=== PATIENT | female | born 1945 | race Caucasian/White ===

== ENCOUNTER 2022-01-03 11:20 | Emergency (ER) | payer MEDICARE ==
[~2022-01-03 11:20] MED LIST: Iopamidol-370 76% 500 ML 1 ML ONE
[2022-01-03 12:33] LABS: #Eosinphils 0.1 thou/uL (0.0-0.7); #Lymphocytes 1.3 thou/uL (1.20-3.40); #Monocytes 0.4 thou/uL (0.11-0.59); #Neutrophils 4.7 thou/uL (1.40-6.50); %Basophils 0.6 % (0.0-1.0); %Eosinophils 2.1 % (0.0-10.0); %Lymphocytes 19.6 % (21.0-51.0); %Neutrophils 71.7 % (42.0-75.0); Hemoglobin 13.5 g/dL (12.0-16.0); Mean Corpuscular HGB CONC 32.3 g/dL (32.0-36.0); Mean Corpuscular Hemoglobin 29.2 pg (27.0-31.0); Mean Corpuscular Volume 90.5 fl (78.0-98.0); Mean Platelet Volume 8.2 fL (7.4-10.4); Platelet Count 127 thou/uL (130-400); RBC Distribution Width 12.7 % (11.5-14.5); Red Blood Cell (RBC) Count 4.62 mill/uL (4.20-5.40); White Blood Cell (WBC) Count 6.6 thou/uL (4.8-10.8)
[2022-01-03 13:41] LABS: Albumin 3.6 g/dL (3.4-4.8)
[2022-01-03 13:42] LABS: Chloride 108 mmol/L (98-107); Potassium 4.3 mmol/L (3.5-5.1); Sodium 139 mmol/L (136-145)
[2022-01-03 13:43] LABS: Calcium 9.5 mg/dL (7.8-10.44); Glucose 177 mg/dL (83-110)
[2022-01-03 13:44] LABS: Globulin 2.8 g/dL (2.4-3.5); Protein, Total 6.4 g/dL (5.8-8.1)
[2022-01-03 13:45] LABS: Anion Gap 9 mmol/L (10-20); Bilirubin, Total 0.5 mg/dL (0.2-1.2); Carbon Dioxide 26 mmol/L (23-31)
[2022-01-03 13:46] LABS: Alkaline Phosphatase 50 U/L (40-110)
[2022-01-03 13:47] LABS: BUN (Urea Nitrogen) 13 mg/dL (9.8-20.1); Calc. Creatinine Clearance 0 mL/min (70-130); Estimated GFR 54
[2022-01-03 13:49] LABS: ALT (SGPT) Less than 7 U/L (8-55); AST (SGOT) 14 U/L (5-34)
[2022-01-03] MEDS ORDERED: diphenhydrAMINE 50 MG/ML VIAL ONE (13:55)
[2022-01-03] MEDS ORDERED: methylPREDNISolone Sod Succ 40 MG VIAL ONE (13:55)
[2022-01-03] MEDS ORDERED: Famotidine/PF 20 mg/2ml Vial ONE (13:55)
[2022-01-03] MEDS ORDERED: Enoxaparin Sodium 100 MG/ML SYRINGE ONE (15:40)
[2022-01-03] MEDS ORDERED: Nitroglycerin 2% Ointment 1 INCH/1 GM Packet ONE (15:45)
== END 2022-01-03 16:00 | disposition home or self-care (01) ==
LOC: ERS 11:20
DX: I82.401 Acute embolism and thrombosis of unspecified deep veins of right lower extremity (principal); E11.9 Type 2 diabetes mellitus without complications; E78.2 Mixed hyperlipidemia; I10 Essential (primary) hypertension
CPT/HCPCS: 36415; 71275; 80053; 85025; 85379; 96372; 96374; 96375; J1200; J1650; J2920; Q9967; S0028

== ENCOUNTER 2022-07-08 14:20 | Inpatient (IN) | payer MEDICARE ==
[2022-07-08 14:53] LABS: #Eosinphils 0.1 thou/uL (0.0-0.7); #Monocytes 0.3 thou/uL (0.11-0.59); #Neutrophils 2.5 thou/uL (1.40-6.50); %Basophils 0.5 % (0.0-1.0); %Eosinophils 2.2 % (0.0-10.0); %Lymphocytes 23.3 % (21.0-51.0); %Monocytes 6.8 % (0.0-10.0); %Neutrophils 66.7 % (42.0-75.0); Hemoglobin 6.7 g/dL (12.0-16.0); Mean Corpuscular Hemoglobin 24.8 pg (27.0-31.0); Mean Corpuscular Volume 82.6 fl (78.0-98.0); Platelet Count 151 10x3/uL (130-400); RBC Distribution Width 14.3 % (11.5-14.5); White Blood Cell (WBC) Count 3.7 10x3/uL (4.8-10.8)
[2022-07-08] MEDS ORDERED: tiZANidine HCl 4 MG TAB PO PRN (15:27)
[2022-07-08] MEDS ORDERED: Dextrose 50% Abboject 50 ML SYRINGE SLOW IVP PRN (15:28)
[2022-07-08] MEDS ORDERED: Dextrose 5% in Water 1,000 ML IV PRN (15:28)
[2022-07-08] MEDS ORDERED: Ondansetron PF 4 MG/2 ML Vial IVP PRN (15:31)
[2022-07-08] MEDS ORDERED: Acetaminophen 325 MG TAB PO PRN (15:31)
[2022-07-08] MEDS ORDERED: Pantoprazole 40 MG VIAL ONE (15:32)
[2022-07-08 15:36] LABS: ALT (SGPT) Less than 7 U/L (8-55); AST (SGOT) 12 U/L (5-34); Albumin 3.1 g/dL (3.4-4.8); Alkaline Phosphatase 37 U/L (40-110); Anion Gap 9 mmol/L (10-20); BUN (Urea Nitrogen) 18 mg/dL (9.8-20.1); Bilirubin, Total 0.3 mg/dL (0.2-1.2); Calc. Creatinine Clearance 0 mL/min (70-130); Calcium 8.9 mg/dL (7.8-10.44); Carbon Dioxide 22 mmol/L (23-31); Chloride 112 mmol/L (98-107); Estimated GFR 50; Globulin 2.4 g/dL (2.4-3.5); Glucose 244 mg/dL (83-110); Potassium 4.3 mmol/L (3.5-5.1); Protein, Total 5.5 g/dL (5.8-8.1); Sodium 139 mmol/L (136-145)
[2022-07-08] MEDS ORDERED: Sodium Chloride 0.9% 1,000 ML IV SCH (15:45)
[2022-07-08 18:46] LABS: Troponin I 0.033 ng/mL (< 0.028)
[2022-07-08] MEDS: Atorvastatin Calcium 20 MG TAB PO SCH (20:49)
[2022-07-08] MEDS: Pantoprazole 40 MG VIAL IVP SCH (20:50)
[2022-07-08] MEDS: Lactated Ringer's 1,000 ML IV SCH (21:12)
[2022-07-08 21:32] VITALS: BMI 37.4
[2022-07-08 21:51] LABS: Hemoglobin 8.6 g/dL (12.0-16.0)
[2022-07-08 22:20] LABS: Troponin I 0.027 ng/mL (< 0.028)
[2022-07-09 04:49] LABS: #Eosinphils 0.2 thou/uL (0.0-0.7); #Monocytes 0.5 thou/uL (0.11-0.59); #Neutrophils 3.1 thou/uL (1.40-6.50); %Basophils 0.4 % (0.0-1.0); %Eosinophils 3.1 % (0.0-10.0); %Lymphocytes 26.3 % (21.0-51.0); %Monocytes 8.8 % (0.0-10.0); Hemoglobin 8.1 g/dL (12.0-16.0); Mean Corpuscular HGB CONC 30.3 g/dL (32.0-36.0); Mean Corpuscular Hemoglobin 25.6 pg (27.0-31.0); Mean Corpuscular Volume 84.2 fl (78.0-98.0); Mean Platelet Volume 10.3 fL (7.4-10.4); Platelet Count 159 10x3/uL (130-400); RBC Distribution Width 14.4 % (11.5-14.5); Red Blood Cell (RBC) Count 3.17 mill/uL (4.20-5.40); White Blood Cell (WBC) Count 5.1 10x3/uL (4.8-10.8)
[2022-07-09 05:02] LABS: INR-International Normal Ratio 1.6; Prothrombin Time 19.3 sec (12.0-14.7)
[2022-07-09 05:18] LABS: ALT (SGPT) Less than 7 U/L (8-55); AST (SGOT) 10 U/L (5-34); Albumin 3.1 g/dL (3.4-4.8); Alkaline Phosphatase 35 U/L (40-110); Anion Gap 11 mmol/L (10-20); BUN (Urea Nitrogen) 15 mg/dL (9.8-20.1); Bilirubin, Total 0.5 mg/dL (0.2-1.2); Calc. Creatinine Clearance 72 mL/min (70-130); Calcium 8.8 mg/dL (7.8-10.44); Carbon Dioxide 22 mmol/L (23-31); Chloride 112 mmol/L (98-107); Estimated GFR 57; Globulin 2.4 g/dL (2.4-3.5); Glucose 75 mg/dL (83-110); Potassium 3.7 mmol/L (3.5-5.1); Protein, Total 5.5 g/dL (5.8-8.1); Sodium 141 mmol/L (136-145)
[2022-07-09] MEDS: Venlafaxine HCl XR 150 MG CAP PO SCH (09:37)
[2022-07-09] MEDS: Pantoprazole 40 MG VIAL IVP SCH ×2 (09:38→21:27)
[2022-07-09] MEDS: Lactated Ringer's 1,000 ML IV SCH (09:47)
[2022-07-09 15:08] LABS: Hemoglobin 8.2 g/dL (12.0-16.0)
[2022-07-09] MEDS: Atorvastatin Calcium 20 MG TAB PO SCH (21:27)
[2022-07-10 04:36] LABS: #Eosinphils 0.2 thou/uL (0.0-0.7); #Monocytes 0.5 thou/uL (0.11-0.59); %Basophils 0.6 % (0.0-1.0); %Eosinophils 3.2 % (0.0-10.0); %Lymphocytes 25.7 % (21.0-51.0); %Monocytes 9.6 % (0.0-10.0); %Neutrophils 60.5 % (42.0-75.0); Hemoglobin 8.4 g/dL (12.0-16.0); Mean Corpuscular HGB CONC 30.1 g/dL (32.0-36.0); Mean Corpuscular Hemoglobin 25.6 pg (27.0-31.0); Mean Corpuscular Volume 85.1 fl (78.0-98.0); Platelet Count 162 10x3/uL (130-400); RBC Distribution Width 14.8 % (11.5-14.5); Red Blood Cell (RBC) Count 3.28 mill/uL (4.20-5.40)
[2022-07-10 04:59] LABS: Anion Gap 12 mmol/L (10-20); BUN (Urea Nitrogen) 12 mg/dL (9.8-20.1); Calc. Creatinine Clearance 74 mL/min (70-130); Carbon Dioxide 19 mmol/L (23-31); Chloride 114 mmol/L (98-107); Estimated GFR 59; Glucose 104 mg/dL (83-110); Potassium 3.8 mmol/L (3.5-5.1); Sodium 141 mmol/L (136-145)
[2022-07-10] MEDS: Pantoprazole 40 MG VIAL IVP SCH ×2 (08:23→21:45)
[2022-07-10] MEDS: Venlafaxine HCl XR 150 MG CAP PO SCH (08:23)
[2022-07-10] MEDS ORDERED: Lidocaine 1% PF 5 ML VIAL ONE (09:50)
[2022-07-10] MEDS ORDERED: Ondansetron HCl/PF 4 MG/2 ML Vial IVP PRN (10:15)
[2022-07-10] MEDS: Lactated Ringer's 1,000 ML IV SCH (11:34)
[2022-07-10] MEDS ORDERED: Triple Antibiotic Oint 1 GM Packet TOP PRN (12:00)
[2022-07-10] MEDS ORDERED: GoLYTELY 4,000 ml Bottle PO SCH (16:00)
[2022-07-10] MEDS: Atorvastatin Calcium 20 MG TAB PO SCH (21:45)
[2022-07-11] MEDS: Lactated Ringer's 1,000 ML IV SCH (01:16)
[2022-07-11 04:35] LABS: #Eosinphils 0.2 thou/uL (0.0-0.7); #Monocytes 0.5 thou/uL (0.11-0.59); #Neutrophils 3.2 thou/uL (1.40-6.50); %Basophils 0.6 % (0.0-1.0); %Eosinophils 4.6 % (0.0-10.0); %Monocytes 9.1 % (0.0-10.0); %Neutrophils 63.5 % (42.0-75.0); Mean Corpuscular HGB CONC 29.9 g/dL (32.0-36.0); Mean Corpuscular Hemoglobin 24.9 pg (27.0-31.0); Mean Corpuscular Volume 83.5 fl (78.0-98.0); Mean Platelet Volume 10.5 fL (7.4-10.4); Platelet Count 167 10x3/uL (130-400); RBC Distribution Width 15.2 % (11.5-14.5); Red Blood Cell (RBC) Count 3.21 mill/uL (4.20-5.40); White Blood Cell (WBC) Count 5.1 10x3/uL (4.8-10.8)
[2022-07-11 05:09] LABS: Anion Gap 11 mmol/L (10-20); BUN (Urea Nitrogen) 8 mg/dL (9.8-20.1); Calc. Creatinine Clearance 78 mL/min (70-130); Calcium 8.8 mg/dL (7.8-10.44); Carbon Dioxide 23 mmol/L (23-31); Chloride 110 mmol/L (98-107); Estimated GFR 63; Glucose 126 mg/dL (83-110); Potassium 3.5 mmol/L (3.5-5.1); Sodium 140 mmol/L (136-145)
[2022-07-11 06:39] LABS: Elliptocytes SLIGHT = 2-5 cells HPF (0-1); Hypochromia SLIGHT = 6-15 cells HPF (0-5); Platelet Morphology Comment Platelets Normal; Polychromasia SLIGHT = 2-3 cells HPF (0-2)
[2022-07-11] MEDS ORDERED: Potassium Chloride 20 MEQ TAB PO SCH (08:00)
[2022-07-11] MEDS ORDERED: Vasopressin 20 UNITS/ML VIAL ONE (09:39)
[2022-07-11] MEDS ORDERED: Lidocaine 1% PF 5 ML VIAL ONE (10:01)
[2022-07-11] MEDS: Pantoprazole 40 MG VIAL IVP SCH ×3 (10:34→21:55)
[2022-07-11] MEDS: Venlafaxine HCl XR 150 MG CAP PO SCH (10:35)
[2022-07-11] MEDS: Atorvastatin Calcium 20 MG TAB PO SCH (21:32)
[2022-07-11] MEDS ORDERED: Pantoprazole 40 MG GRANULES PACKET PO SCH (22:00)
[2022-07-12 05:02] LABS: #Eosinphils 0.2 thou/uL (0.0-0.7); #Monocytes 0.6 thou/uL (0.11-0.59); #Neutrophils 3.3 thou/uL (1.40-6.50); %Basophils 0.6 % (0.0-1.0); %Eosinophils 3.9 % (0.0-10.0); %Lymphocytes 23.5 % (21.0-51.0); %Monocytes 10.6 % (0.0-10.0); Hemoglobin 7.9 g/dL (12.0-16.0); Mean Corpuscular HGB CONC 28.9 g/dL (32.0-36.0); Mean Corpuscular Hemoglobin 24.7 pg (27.0-31.0); Mean Corpuscular Volume 85.3 fl (78.0-98.0); Mean Platelet Volume 10.7 fL (7.4-10.4); Platelet Count 149 10x3/uL (130-400); RBC Distribution Width 15.4 % (11.5-14.5); White Blood Cell (WBC) Count 5.4 10x3/uL (4.8-10.8)
[2022-07-12 05:24] LABS: Anion Gap 12 mmol/L (10-20); BUN (Urea Nitrogen) 9 mg/dL (9.8-20.1); Calc. Creatinine Clearance 69 mL/min (70-130); Calcium 8.9 mg/dL (7.8-10.44); Carbon Dioxide 21 mmol/L (23-31); Chloride 111 mmol/L (98-107); Estimated GFR 55; Glucose 236 mg/dL (83-110); Potassium 3.5 mmol/L (3.5-5.1); Sodium 140 mmol/L (136-145)
[2022-07-12 05:59] LABS: Anisocytosis SLIGHT = 6-15 cells HPF (0-5); Hypochromia SLIGHT = 6-15 cells HPF (0-5); Ovalocytes SLIGHT = 2-5 cells HPF (0-1); Platelet Morphology Comment Platelets Normal; Polychromasia SLIGHT = 2-3 cells HPF (0-2); Target Cells SLIGHT = 2-5 cells HPF (0-1)
[2022-07-12] MEDS: HumaLOG 300 UNITS/3 ML VIAL SC PRN ×2 (07:19→17:58)
[2022-07-12] MEDS: Venlafaxine HCl XR 150 MG CAP PO SCH (08:54)
[2022-07-12] MEDS: Pantoprazole 40 MG GRANULES PACKET PO SCH ×2 (08:54→20:40)
[2022-07-12] MEDS ORDERED: Amlodipine 5 MG TAB PO SCH (09:15)
[2022-07-12] MEDS ORDERED: Potassium Chloride 20 MEQ TAB PO SCH (09:30)
[2022-07-12] MEDS: Atorvastatin Calcium 20 MG TAB PO SCH (20:39)
[2022-07-13] MEDS: HumaLOG 300 UNITS/3 ML VIAL SC PRN ×5 (01:13→21:39)
[2022-07-13] MEDS: Venlafaxine HCl XR 150 MG CAP PO SCH (09:15)
[2022-07-13] MEDS: Amlodipine 5 MG TAB PO SCH (09:15)
[2022-07-13] MEDS: Pantoprazole 40 MG GRANULES PACKET PO SCH ×2 (09:15→20:11)
[2022-07-13] MEDS ORDERED: Insulin Glargine 30 UNITS/0.3 ML VIAL SC SCH (13:00)
[2022-07-13] MEDS: Atorvastatin Calcium 20 MG TAB PO SCH (20:11)
[2022-07-14 05:02] LABS: Hemoglobin 8.1 g/dL (12.0-16.0); Mean Corpuscular HGB CONC 28.9 g/dL (32.0-36.0); Mean Corpuscular Hemoglobin 24.4 pg (27.0-31.0); Mean Corpuscular Volume 84.3 fl (78.0-98.0); Mean Platelet Volume 10.7 fL (7.4-10.4); Platelet Count 166 10x3/uL (130-400); RBC Distribution Width 15.8 % (11.5-14.5); Red Blood Cell (RBC) Count 3.32 mill/uL (4.20-5.40); White Blood Cell (WBC) Count 5.8 10x3/uL (4.8-10.8)
[2022-07-14 05:08] LABS: Delete Auto Diff?? YES; Manual Diff?? YES
[2022-07-14 05:35] LABS: Anion Gap 11 mmol/L (10-20); BUN (Urea Nitrogen) 10 mg/dL (9.8-20.1); Calc. Creatinine Clearance 67 mL/min (70-130); Calcium 9.2 mg/dL (7.8-10.44); Carbon Dioxide 21 mmol/L (23-31); Chloride 107 mmol/L (98-107); Estimated GFR 52; Glucose 247 mg/dL (83-110); Sodium 135 mmol/L (136-145)
[2022-07-14 05:44] LABS: Band 11 % (5-11); CellaVision Operator ID LAB.CLH1; Eosinophils 3 % (0-10); Hypochromia SLIGHT = 6-15 cells HPF (0-5); Lymphocytes 12 % (21-51); Monocytes 3 % (0-10); Neutrophil 69 % (42-75); Platelet Morphology Comment Platelets Normal; Polychromasia MODERATE = 3-4 cells HPF (0-2); Total Cell Count 100
[2022-07-14] MEDS: HumaLOG 300 UNITS/3 ML VIAL SC PRN ×4 (05:45→20:18)
[2022-07-14] MEDS: Amlodipine 5 MG TAB PO SCH (08:47)
[2022-07-14] MEDS: Venlafaxine HCl XR 150 MG CAP PO SCH (08:50)
[2022-07-14] MEDS ORDERED: Insulin Glargine 30 UNITS/0.3 ML VIAL SC SCH (09:00)
[2022-07-14] MEDS ORDERED: Non-Formulary Item 1 EACH (Insulin Aspart [Novolog Flexpen] 100 UNIT/ML Insuln.Pen) SQ SCH (09:00)
[2022-07-14] MEDS ORDERED: Rivaroxaban 10 MG TAB PO SCH (09:00)
[2022-07-14] MEDS: Pantoprazole 40 MG GRANULES PACKET PO SCH (09:39)
[2022-07-14] MEDS: Rivaroxaban 10 MG TAB PO SCH (16:08)
[2022-07-14] MEDS: Insulin Glargine 30 UNITS/0.3 ML VIAL SC SCH (20:14)
[2022-07-14] MEDS: Atorvastatin Calcium 20 MG TAB PO SCH (20:19)
[2022-07-14] MEDS ORDERED: LIRAGLUTIDE 0.6 MG/0.1 ML SC SCH (21:00)
[2022-07-15 05:09] LABS: Hemoglobin 7.7 g/dL (12.0-16.0)
[2022-07-15 05:30] LABS: Anion Gap 11 mmol/L (10-20); BUN (Urea Nitrogen) 11 mg/dL (9.8-20.1); Calc. Creatinine Clearance 74 mL/min (70-130); Calcium 9.1 mg/dL (7.8-10.44); Carbon Dioxide 23 mmol/L (23-31); Chloride 108 mmol/L (98-107); Estimated GFR 59; Glucose 169 mg/dL (83-110); Potassium 3.8 mmol/L (3.5-5.1); Sodium 138 mmol/L (136-145)
[2022-07-15] MEDS: Amlodipine 5 MG TAB PO SCH (08:52)
[2022-07-15] MEDS: Venlafaxine HCl XR 150 MG CAP PO SCH (08:52)
[2022-07-15] MEDS: HumaLOG 300 UNITS/3 ML VIAL SC PRN ×2 (11:17→18:11)
[2022-07-15] MEDS: Rivaroxaban 10 MG TAB PO SCH (18:11)
[2022-07-15] MEDS: Insulin Glargine 30 UNITS/0.3 ML VIAL SC SCH (20:52)
[2022-07-15] MEDS: Atorvastatin Calcium 20 MG TAB PO SCH (20:52)
[2022-07-16 04:44] LABS: Hemoglobin 7.9 g/dL (12.0-16.0)
[2022-07-16] MEDS: Amlodipine 5 MG TAB PO SCH (09:37)
[2022-07-16] MEDS: Venlafaxine HCl XR 150 MG CAP PO SCH (09:38)
[2022-07-16] MEDS: Rivaroxaban 10 MG TAB PO SCH (16:26)
[2022-07-16] MEDS: HumaLOG 300 UNITS/3 ML VIAL SC PRN (16:33)
[2022-07-16] MEDS: Insulin Glargine 30 UNITS/0.3 ML VIAL SC SCH (20:43)
[2022-07-16] MEDS: Atorvastatin Calcium 20 MG TAB PO SCH (20:44)
[2022-07-17 04:16] LABS: Hemoglobin 7.7 g/dL (12.0-16.0)
[2022-07-17] MEDS: Amlodipine 5 MG TAB PO SCH (10:30)
[2022-07-17] MEDS: Venlafaxine HCl XR 150 MG CAP PO SCH (10:30)
[2022-07-17] MEDS: HumaLOG 300 UNITS/3 ML VIAL SC PRN (10:34)
[2022-07-17 11:53] VITALS: BP 128/58; TEMP 98.1
== END 2022-07-17 15:15 | disposition home health service (06) | DRG 812 ==
LOC: ERS 14:20 → SUATTDRO 14:20 → 2NO 17:03
PROVIDERS: ADMIT Internal Medicine; ATTEND Internal Medicine
PROC: 30233N1 Transfusion of Nonautologous Red Blood Cells into Peripheral Vein, Percutaneous Approach (ICD-10-PCS; 2022-07-08)
PROC: 0DJ08ZZ Inspection of Upper Intestinal Tract, Via Natural or Artificial Opening Endoscopic (ICD-10-PCS; principal; 2022-07-10)
PROC: 0DBM8ZZ Excision of Descending Colon, Via Natural or Artificial Opening Endoscopic (ICD-10-PCS; 2022-07-11)
PROC: 3E033XZ Introduction of Vasopressor into Peripheral Vein, Percutaneous Approach (ICD-10-PCS; 2022-07-11)
DX: D62 Acute posthemorrhagic anemia (principal); I10 Essential (primary) hypertension; E78.5 Hyperlipidemia, unspecified; E11.9 Type 2 diabetes mellitus without complications; G89.29 Other chronic pain; G20 Parkinson's disease; K57.30 Diverticulosis of large intestine without perforation or abscess without bleeding; D12.4 Benign neoplasm of descending colon; T70.29XA Other effects of high altitude, initial encounter; Z79.01 Long term (current) use of anticoagulants; Z86.718 Personal history of other venous thrombosis and embolism; Z88.5 Allergy status to narcotic agent; Z90.710 Acquired absence of both cervix and uterus; Z88.8 Allergy status to other drugs, medicaments and biological substances; Z98.890 Other specified postprocedural states; Z79.82 Long term (current) use of aspirin; Z79.4 Long term (current) use of insulin; Z91.048 Other nonmedicinal substance allergy status; Z79.84 Long term (current) use of oral hypoglycemic drugs; Z79.899 Other long term (current) drug therapy
CPT/HCPCS: 36415; 36416; 36430; 71045; 80048; 80053; 82274; 84484; 85014; 85018; 85025; 85379; 85610; 86850; 86900; 86901; 88305; 93005; 96374; C9113; J1815; J7120; P9016

== ENCOUNTER 2024-10-31 20:37 | Inpatient (IN) | payer MEDICARE ==
[~2024-10-31 20:37] MED LIST changes: -Iopamidol-370 76% 500 ML 1 ML ONE; +Iopamidol-370 76% 500 ML MDV (1 ML CHARGE) ONE
[2024-10-31 21:26] LABS: Bacteria/HPF None Seen HPF (None Seen); CAUTI Indications for Culture Acute Hematuria; Glucose, Urine (Dipstick) Greater than 1000 mg/dL (Negative); Leukocyte 500 Leu/uL (Negative); Protein, Urine (Dipstick) 50 mg/dL (Neg-Trace); Specific Gravity, Urine 1.027 (1.002-1.036); WBC/HPF Greater than 50 HPF (0-3)
[2024-10-31 21:28] LABS: #Basophils 0.03 10x3/uL (0.0-0.2); #Eosinophils Less than 0.03 10x3/uL (0.0-0.7); #Monocytes 1.13 10x3/uL (0.11-0.59); #Neutrophils 16.22 10x3/uL (1.40-6.50); %Basophils 0.2 % (0.0-1.0); %Eosinophils 0.0 % (0.0-10.0); %Lymphocytes 4.3 % (21.0-51.0); %Monocytes 6.1 % (0.0-10.0); %Neutrophils 88.2 % (42.0-75.0); Hematocrit 41.8 % (36.0-47.0); Hemoglobin 12.4 g/dL (12.0-16.0); Mean Corpuscular Hemoglobin 22.0 pg (27.0-31.0); Mean Corpuscular Volume 74.2 fL (78.0-98.0); Platelet Count 186 10x3/uL (130-400); Red Blood Cell (RBC) Count 5.63 mill/uL (4.20-5.40); White Blood Cell (WBC) Count 18.41 10x3/uL (4.8-10.8)
[2024-10-31 21:28] LABS: Urine Culture Reflex Yes Yes
[2024-10-31 21:31] LABS: Cocaine Metabolite Screen Negative (Negative); THC/Cannabinoid Screen Negative (Negative); Tricyclic Screen Negative (Negative)
[2024-10-31 21:39] LABS: INR-International Normal Ratio 1.3; Prothrombin Time 16.7 sec (12.0-14.7)
[2024-10-31 21:40] LABS: PTT 32.1 sec (22.9-36.1)
[2024-10-31 21:50] LABS: Lipase 7 U/L (8-78)
[2024-10-31 21:53] LABS: Acetaminophen Less than 10 mcg/mL (Less than 10); Salicylate Less than 8.0 mg/dL (Less than 8.0)
[2024-10-31] MEDS ORDERED: cefTRIAXone (ROCEPHIN) 1 GM VIAL ONE (21:55)
[2024-10-31 22:01] LABS: ALT (SGPT) 11 U/L (Less than 34); AST (SGOT) 49 U/L (11-34); Albumin 3.2 g/dL (3.1-4.5); Alkaline Phosphatase 93 U/L (40-110); Anion Gap 23 mmol/L (10-20); BUN (Urea Nitrogen) 36 mg/dL (9.8-20.1); Bilirubin, Total 1.0 mg/dL (0.3-1.2); CK (CPK) 1475 U/L (29-168); Calc. Creatinine Clearance 0 mL/min (70-130); Calcium 9.6 mg/dL (7.8-10.44); Carbon Dioxide 17 mmol/L (23-31); Chloride 110 mmol/L (98-107); Globulin 4.0 g/dL (2.4-3.5); Glucose 595 mg/dL (83-110); Potassium 4.1 mmol/L (3.5-5.1); Sodium 146 mmol/L (136-145)
[2024-10-31 22:02] LABS: Anisocytosis SLIGHT = 6-15 cells HPF (0-5); Microcytosis SLIGHT = 6-15 cells HPF (0-5); Platelet Adequacy Comment Platelets Normal; Polychromasia SLIGHT = 2-3 cells HPF (0-2)
[2024-10-31 22:28] LABS: Base Excess -11.1 mEq/L (-2.0 to +3.0); Calcium, Ionized (venous) 1.15 mmol/L (1.16-1.32); Chloride (VBG) 107 mmol/L (98-106); Hematocrit-VBG 37 % (36.0-47.0); Hemoglobin (Hb) 12.7 g/dL (11.7-16.1); Potassium (VBG) 4.18 mmol/L (3.70-5.30); Sodium 142 mmol/L (133-146)
[2024-10-31 22:29] LABS: Actual Bicarbonate (HCO3v) 13.5 mEq/L (22-28)
[2024-10-31] MEDS ORDERED: Boostrix 0.5 ML (Tdap) VIAL (>/=7 yrs of age) ONE (22:44)
[2024-10-31] MEDS ORDERED: Electrolyte Replacement Protocol 1 EACH FS SCH (23:45)
[2024-10-31] MEDS ORDERED: INSULIN REGULAR IN 0.9 % NACL 100 ML ONE (23:51)
[2024-10-31] MEDS ORDERED: Calcium Carbonate 500 MG ChewTAB PO PRN (23:57)
[2024-10-31] MEDS ORDERED: Ondansetron PF 4 MG/2 ML Vial IVP PRN (23:57)
[2024-10-31] MEDS ORDERED: Senokot S 8.6-50 MG TAB PO PRN (23:57)
[2024-11-01] MEDS ORDERED: Dextrose 50% Abboject 50 ML SYRINGE SLOW IVP PRN ×2 (00:05→10:00)
[2024-11-01] MEDS ORDERED: D5 1/2 NS w/20 mEq KCL 1,000 ML IV PRN (00:05)
[2024-11-01] MEDS ORDERED: NS 0.9% w/ 20 MEQ KCL 1,000 ML IV PRN (00:05)
[2024-11-01] MEDS ORDERED: INSULIN REGULAR IN 0.9 % NACL 100 ML IVPB SCH (00:15)
[2024-11-01] MEDS ORDERED: NS 0.9% w/ 20 MEQ KCL 1,000 ML ONE (00:25)
[2024-11-01 00:53] LABS: Magnesium 1.9 mg/dL (1.6-2.6)
[2024-11-01 01:50] LABS: ALT (SGPT) 11 U/L (Less than 34); AST (SGOT) 47 U/L (11-34); Albumin 2.8 g/dL (3.1-4.5); Alkaline Phosphatase 83 U/L (40-110); Anion Gap 17 mmol/L (10-20); BUN (Urea Nitrogen) 36 mg/dL (9.8-20.1); Bilirubin, Total 0.6 mg/dL (0.3-1.2); Calc. Creatinine Clearance 0 mL/min (70-130); Calcium 8.9 mg/dL (7.8-10.44); Carbon Dioxide 19 mmol/L (23-31); Chloride 115 mmol/L (98-107); Globulin 3.7 g/dL (2.4-3.5); Glucose 448 mg/dL (83-110); Potassium 3.9 mmol/L (3.5-5.1); Sodium 147 mmol/L (136-145)
[2024-11-01 01:58] VITALS: BMI 27.2
[2024-11-01] MEDS: NS 0.9% w/ 20 MEQ KCL 1,000 ML IV PRN (02:53)
[2024-11-01] MEDS: Vancomycin 1 GM in Premix 1 BAG IVPB SCH (02:54)
[2024-11-01 04:19] LABS: #Basophils 0.04 10x3/uL (0.0-0.2); #Eosinophils Less than 0.03 10x3/uL (0.0-0.7); #Monocytes 1.76 10x3/uL (0.11-0.59); #Neutrophils 11.92 10x3/uL (1.40-6.50); %Basophils 0.3 % (0.0-1.0); %Eosinophils 0.0 % (0.0-10.0); %Lymphocytes 9.1 % (21.0-51.0); %Monocytes 11.6 % (0.0-10.0); %Neutrophils 78.3 % (42.0-75.0); Hematocrit 38.5 % (36.0-47.0); Hemoglobin 11.1 g/dL (12.0-16.0); Mean Corpuscular Hemoglobin 22.1 pg (27.0-31.0); Mean Corpuscular Volume 76.5 fL (78.0-98.0); Platelet Count 162 10x3/uL (130-400); Red Blood Cell (RBC) Count 5.03 mill/uL (4.20-5.40); White Blood Cell (WBC) Count 15.21 10x3/uL (4.8-10.8)
[2024-11-01 07:02] LABS: Carbon Dioxide 17 mmol/L (23-31); Chloride 119 mmol/L (98-107); Potassium 5.4 mmol/L (3.5-5.1); Sodium 149 mmol/L (136-145)
[2024-11-01 07:03] LABS: Anion Gap 18 mmol/L (10-20); BUN (Urea Nitrogen) 34 mg/dL (9.8-20.1); CK (CPK) 1736 U/L (29-168); Calc. Creatinine Clearance 48 mL/min (70-130); Calcium 9.1 mg/dL (7.6-10.4); Glucose 226 mg/dL (83-110)
[2024-11-01 07:18] LABS: Magnesium 2.1 mg/dL (1.6-2.6)
[2024-11-01] MEDS: Famotidine/PF 20 mg/2ml Vial SLOW IVP SCH (09:38)
[2024-11-01] MEDS: Heparin 5,000 UNITS/ML VIAL SC SCH (09:40)
[2024-11-01] MEDS ORDERED: Glucagon 1 MG/ML KIT IM PRN (10:00)
[2024-11-01 10:01] LABS: Anion Gap 19 mmol/L (10-20); BUN (Urea Nitrogen) 33 mg/dL (9.8-20.1); Calc. Creatinine Clearance 54 mL/min (70-130); Calcium 9.3 mg/dL (7.8-10.44); Carbon Dioxide 18 mmol/L (23-31); Chloride 121 mmol/L (98-107); Glucose 140 mg/dL (83-110); Potassium 4.4 mmol/L (3.5-5.1); Sodium 154 mmol/L (136-145)
[2024-11-01 10:14] LABS: Hb (HGBA1c) 3201.8096 umol/L
[2024-11-01] MEDS: Magnesium 2 GM/50 ML(in water) 2 GM in Premix 1 BAG IVPB SCH (12:42)
[2024-11-01] MEDS: Vancomycin 1.25 GM / NS 250 ML VIAL-2-BAG IVPB SCH (13:46)
[2024-11-02] MEDS ORDERED: Vancomycin 1 GM in Premix 1 BAG IVPB SCH (06:00)
[2024-11-02 06:09] LABS: Vancomycin, Random 16.1 ug/mL (See Comment)
[2024-11-02 06:12] LABS: ALT (SGPT) 10 U/L (Less than 34); AST (SGOT) 50 U/L (11-34); Albumin 2.6 g/dL (3.1-4.5); Alkaline Phosphatase 70 U/L (40-110); Anion Gap 14 mmol/L (10-20); BUN (Urea Nitrogen) 20 mg/dL (9.8-20.1); Bilirubin, Total 0.7 mg/dL (0.3-1.2); CK (CPK) 1000 U/L (29-168); Calc. Creatinine Clearance 69 mL/min (70-130); Calcium 8.6 mg/dL (7.8-10.44); Carbon Dioxide 17 mmol/L (23-31); Chloride 121 mmol/L (98-107); Globulin 3.2 g/dL (2.4-3.5); Glucose 240 mg/dL (83-110); Magnesium 2.1 mg/dL (1.6-2.6); Potassium 3.7 mmol/L (3.5-5.1); Sodium 148 mmol/L (136-145)
[2024-11-02 06:51] LABS: #Basophils 0.03 10x3/uL (0.0-0.2); #Eosinophils 0.07 10x3/uL (0.0-0.7); #Monocytes 0.50 10x3/uL (0.11-0.59); #Neutrophils 4.99 10x3/uL (1.40-6.50); %Basophils 0.5 % (0.0-1.0); %Eosinophils 1.1 % (0.0-10.0); %Lymphocytes 15.4 % (21.0-51.0); %Monocytes 7.5 % (0.0-10.0); %Neutrophils 75.2 % (42.0-75.0); Hematocrit 36.2 % (36.0-47.0); Hemoglobin 10.2 g/dL (12.0-16.0); Mean Corpuscular Hemoglobin 22.0 pg (27.0-31.0); Mean Corpuscular Volume 78.0 fL (78.0-98.0); Platelet Count 132 10x3/uL (130-400); Red Blood Cell (RBC) Count 4.64 mill/uL (4.20-5.40); White Blood Cell (WBC) Count 6.63 10x3/uL (4.8-10.8)
[2024-11-02] MEDS: Mupirocin 1 GM TUBE TP SCH (07:42)
[2024-11-02] MEDS: Insulin Glargine 30 UNITS/0.3 ML VIAL SC SCH (12:03)
[2024-11-03 06:19] LABS: #Basophils Less than 0.03 10x3/uL (0.0-0.2); #Eosinophils 0.14 10x3/uL (0.0-0.7); #Monocytes 0.34 10x3/uL (0.11-0.59); #Neutrophils 3.21 10x3/uL (1.40-6.50); %Basophils 0.4 % (0.0-1.0); %Eosinophils 2.9 % (0.0-10.0); %Lymphocytes 22.7 % (21.0-51.0); %Monocytes 7.1 % (0.0-10.0); %Neutrophils 66.7 % (42.0-75.0); Hematocrit 30.9 % (36.0-47.0); Hemoglobin 9.0 g/dL (12.0-16.0); Mean Corpuscular Hemoglobin 21.8 pg (27.0-31.0); Mean Corpuscular Volume 75.0 fL (78.0-98.0); Platelet Count 114 10x3/uL (130-400); Red Blood Cell (RBC) Count 4.12 mill/uL (4.20-5.40); White Blood Cell (WBC) Count 4.81 10x3/uL (4.8-10.8)
[2024-11-03 06:41] LABS: ALT (SGPT) 10 U/L (Less than 34); AST (SGOT) 31 U/L (11-34); Albumin 2.1 g/dL (3.1-4.5); Alkaline Phosphatase 65 U/L (40-110); Anion Gap 8 mmol/L (10-20); BUN (Urea Nitrogen) 13 mg/dL (9.8-20.1); Bilirubin, Total 0.7 mg/dL (0.3-1.2); Calc. Creatinine Clearance 82 mL/min (70-130); Calcium 8.1 mg/dL (7.8-10.44); Carbon Dioxide 19 mmol/L (23-31); Chloride 115 mmol/L (98-107); Globulin 3.0 g/dL (2.4-3.5); Glucose 189 mg/dL (83-110); Magnesium 1.7 mg/dL (1.6-2.6); Potassium 3.4 mmol/L (3.5-5.1); Sodium 139 mmol/L (136-145)
[2024-11-03] MEDS: Magnesium 2 GM/50 ML(in water) 2 GM in Premix 1 BAG IVPB SCH (09:12)
[2024-11-03] MEDS: Potassium Bicarbonate/Cit Ac 20 MEQ TAB PO SCH (09:12)
[2024-11-03] MEDS: Insulin Glargine 30 UNITS/0.3 ML VIAL SC SCH (09:13)
[2024-11-03 13:48] VITALS: BMI 29.0
[2024-11-03] MEDS: cefTRIAXone\\ROCEPHIN 2 GM in Sodium Chloride 0.9% 100 ML IVPB SCH (21:00)
[2024-11-03] MEDS: Famotidine/PF 20 mg/2ml Vial SLOW IVP SCH (21:01)
[2024-11-04 06:53] LABS: #Basophils Less than 0.03 10x3/uL (0.0-0.2); #Eosinophils 0.17 10x3/uL (0.0-0.7); #Monocytes 0.40 10x3/uL (0.11-0.59); #Neutrophils 2.69 10x3/uL (1.40-6.50); %Basophils 0.2 % (0.0-1.0); %Eosinophils 3.9 % (0.0-10.0); %Lymphocytes 23.7 % (21.0-51.0); %Monocytes 9.3 % (0.0-10.0); %Neutrophils 62.4 % (42.0-75.0); Hematocrit 29.8 % (36.0-47.0); Hemoglobin 8.7 g/dL (12.0-16.0); Mean Corpuscular Hemoglobin 22.3 pg (27.0-31.0); Mean Corpuscular Volume 76.2 fL (78.0-98.0); Platelet Count 102 10x3/uL (130-400); Red Blood Cell (RBC) Count 3.91 mill/uL (4.20-5.40); White Blood Cell (WBC) Count 4.31 10x3/uL (4.8-10.8)
[2024-11-04 07:42] LABS: Anisocytosis SLIGHT = 6-15 cells HPF (0-5); Burr Cells SLIGHT = 2-5 cells HPF (0-1); Microcytosis SLIGHT = 6-15 cells HPF (0-5); Platelet Adequacy Comment Platelets Decreased; Polychromasia SLIGHT = 2-3 cells HPF (0-2); Schistocytes SLIGHT = 2-5 cells HPF (0-1)
[2024-11-05 05:41] LABS: #Basophils Less than 0.03 10x3/uL (0.0-0.2); #Eosinophils 0.21 10x3/uL (0.0-0.7); #Monocytes 0.45 10x3/uL (0.11-0.59); #Neutrophils 2.81 10x3/uL (1.40-6.50); %Basophils 0.4 % (0.0-1.0); %Eosinophils 4.6 % (0.0-10.0); %Lymphocytes 23.6 % (21.0-51.0); %Monocytes 9.8 % (0.0-10.0); %Neutrophils 60.9 % (42.0-75.0); Hematocrit 29.6 % (36.0-47.0); Hemoglobin 8.6 g/dL (12.0-16.0); Mean Corpuscular Hemoglobin 22.1 pg (27.0-31.0); Mean Corpuscular Volume 76.1 fL (78.0-98.0); Platelet Count 108 10x3/uL (130-400); Red Blood Cell (RBC) Count 3.89 mill/uL (4.20-5.40); White Blood Cell (WBC) Count 4.61 10x3/uL (4.8-10.8)
[2024-11-05 06:21] LABS: Anion Gap 11 mmol/L (10-20); BUN (Urea Nitrogen) 9 mg/dL (9.8-20.1); Calc. Creatinine Clearance 85 mL/min (70-130); Calcium 8.2 mg/dL (7.8-10.44); Carbon Dioxide 21 mmol/L (23-31); Chloride 114 mmol/L (98-107); Glucose 122 mg/dL (83-110); Magnesium 1.8 mg/dL (1.6-2.6); Potassium 3.8 mmol/L (3.5-5.1); Sodium 142 mmol/L (136-145)
[2024-11-05] MEDS: Magnesium 2 GM/50 ML(in water) 2 GM in Premix 1 BAG IVPB SCH (08:42)
[2024-11-06 06:13] LABS: Anion Gap 9 mmol/L (10-20); BUN (Urea Nitrogen) 9 mg/dL (9.8-20.1); Calc. Creatinine Clearance 76 mL/min (70-130); Calcium 8.9 mg/dL (7.8-10.44); Carbon Dioxide 20 mmol/L (23-31); Chloride 114 mmol/L (98-107); Glucose 150 mg/dL (83-110); Potassium 4.3 mmol/L (3.5-5.1); Sodium 139 mmol/L (136-145)
[2024-11-07 07:00] LABS: Anion Gap 10 mmol/L (10-20); BUN (Urea Nitrogen) 7 mg/dL (9.8-20.1); Calc. Creatinine Clearance 91 mL/min (70-130); Calcium 8.6 mg/dL (7.8-10.44); Carbon Dioxide 22 mmol/L (23-31); Chloride 112 mmol/L (98-107); Glucose 124 mg/dL (83-110); Potassium 4.2 mmol/L (3.5-5.1); Sodium 140 mmol/L (136-145)
[2024-11-07] MEDS: Acetaminophen 325 MG TAB PO PRN (16:33)
[2024-11-09 05:39] LABS: Anion Gap 7 mmol/L (10-20); BUN (Urea Nitrogen) 8 mg/dL (9.8-20.1); Calc. Creatinine Clearance 85 mL/min (70-130); Calcium 8.8 mg/dL (7.8-10.44); Carbon Dioxide 25 mmol/L (23-31); Chloride 108 mmol/L (98-107); Glucose 159 mg/dL (83-110); Potassium 4.2 mmol/L (3.5-5.1); Sodium 136 mmol/L (136-145)
[2024-11-09] MEDS ORDERED: Loratadine 10 MG/10 ML UDCUP PO PRN (09:45)
[2024-11-09] MEDS: diphenhydrAMINE 12.5 MG/5 ML UDCUP PO SCH (11:21)
[2024-11-09 19:46] VITALS: BP 117/68; TEMP 98.6
[2024-11-10] MEDS ORDERED: Loratadine 10 MG/10 ML UDCUP PO PRN (09:00)
== END 2024-11-09 21:58 | DRG 871 ==
LOC: ERS 20:37 → SUATTDRO 20:37 → IMCU/EMU 23:56 → T4-A 11-02 17:17
PROVIDERS: ADMIT Internal Medicine; ATTEND Internal Medicine
PROC: XX20X89 Monitoring of Brain Electrical Activity, Computer-aided Detection and Notification, New Technology Group 9 (ICD-10-PCS; principal; 2024-10-31)
PROC: 3E03329 Introduction of Other Anti-infective into Peripheral Vein, Percutaneous Approach (ICD-10-PCS; 2024-11-01)
DX: A41.9 Sepsis, unspecified organism (principal); E11.10 Type 2 diabetes mellitus with ketoacidosis without coma; G93.41 Metabolic encephalopathy; J18.9 Pneumonia, unspecified organism; E87.1 Hypo-osmolality and hyponatremia; M62.82 Rhabdomyolysis; N17.9 Acute kidney failure, unspecified; N39.0 Urinary tract infection, site not specified; E87.0 Hyperosmolality and hypernatremia; Z66 Do not resuscitate; I10 Essential (primary) hypertension; R65.20 Severe sepsis without septic shock; E78.5 Hyperlipidemia, unspecified; E11.9 Type 2 diabetes mellitus without complications; Z88.8 Allergy status to other drugs, medicaments and biological substances; Z88.5 Allergy status to narcotic agent; Z91.048 Other nonmedicinal substance allergy status; F39 Unspecified mood [affective] disorder; Z86.718 Personal history of other venous thrombosis and embolism; G20.A1 Parkinson's disease without dyskinesia, without mention of fluctuations; Z86.73 Personal history of transient ischemic attack (TIA), and cerebral infarction without residual deficits; E86.0 Dehydration; R79.89 Other specified abnormal findings of blood chemistry; D64.9 Anemia, unspecified; B96.1 Klebsiella pneumoniae [K. pneumoniae] as the cause of diseases classified elsewhere; Z79.899 Other long term (current) drug therapy; Z79.82 Long term (current) use of aspirin; Z79.4 Long term (current) use of insulin
CPT/HCPCS: 36415; 36416; 51702; 70450; 71260; 72125; 74177; 80048; 80053; 80202; 80306; 80307; 81001; 82010; 82310; 82550; 82805; 83036; 83605; 83690; 83735; 83880; 84100; 84145; 84443; 84484; 85025; 85610; 85730; 86850; 86900; 86901; 87040; 87077; 87081; 87086; 87149; 87186; 90471; 90715; 93005; 95812; 96361; 96365; 96367; 96374; 96375; 97139; 99292; J0692; J0696; J1308; J1644; J1815; J2060; J3010; J3373; J3475; J3480; J7042; J7050; J7120; Q0163; Q9967